=== PATIENT | female | born 1970 | race Caucasian/White ===

== ENCOUNTER → 2017-02-06 | Outpatient (CLI) | payer OTHER ==
[~2017-02-06] MED LIST: ADVIL PO; DOXYCYCLINE HY100 MG PO; GABAPENTIN300 MG PO; GADOBUTROL 10 MMOL/10 ML VIAL IV ONE; TRAMADOL-ACETAMI1 EA PO; XANAX0.5 MG PO
--- NOTE | 2017-02-08 15:05 | Diagnostic Imaging Report ---
TECHNIQUE: Magnetic resonance imaging of the PELVIS was performed WITH and WITHOUT, 10 cc of intravenous Gadavist. HISTORY: Sacral and coccygeal pain, reported history of staph infection in 2015 COMPARISON: None. FINDINGS: Notified regarding availability images for interpretation on February 08, 2017 at approximately 1300. Prominent signal void (likely air) in the rectosigmoid region with adjacent Inhomogeneous fat saturation, partially limits regional evaluation. Bone and bone marrow: No focal or infiltrative bone marrow replacing abnormality. No fracture or osteonecrosis. Joints: Minimal degenerative changes of the femoral acetabular joints. Soft tissues: Trace ill-defined fluid signal intensity superficial to the coccyx with questionable subtle peripheral enhancement (axial image 24 and 25). Multiple round hypointensities within the uterus measuring up to 2.1 cm on the left, compatible with multiple fibroids. IMPRESSION: 1. No evidence of osteomyelitis or an acute fracture. 2. Trace nonspecific fluid superficial to the or subtle aspect of the coccyx, but no discrete well-defined drainable abscess collection. Signed by: America AguilarO., M.M.M. on 02/08/2017 3:01 PM
== END ==
LOC: MRI 09:34
PROVIDERS: ATTEND Family Medicine
DX: M53.3 Sacrococcygeal disorders, not elsewhere classified (principal)
CPT/HCPCS: 72197; A9585